=== PATIENT | male | born 1980 | race Caucasian/White ===

== ENCOUNTER 2016-08-16 20:21 | Emergency (ER) | payer SELFPAY ==
--- NOTE | 2016-08-28 21:14 | ER ---
ADMIT: 08/16/2016 RM/LOC: ER [facility] MR#: [id number] [address] [address] SRINI BIRMINGHAM [address] [place] [address] Emergency Room Report SEX: M AGE: 36 : 1980 DATE: 08/16/2016 ADDENDUM: CHIEF COMPLAINT: Seizure. HISTORY OF PRESENT ILLNESS: This is a 36-year-old, who is at [facility] detoxing from one night of doing methamphetamine, cocaine, and marijuana. This was all done on Saturday after he was discharged from detention. Right after that, he went to [facility] for detox. There is no alcohol that has been used recently. Tonight, he had 1 seizure, he is on Keppra 500 mg b.i.d. I gave him a loading dose IV a 1000 mg here, having him return to [facility], continue the Keppra 500 mg b.i.d., follow up with the neurologist if he has another seizure. CLINICAL IMPRESSION: Seizure with history of epilepsy. BRENNA Lo / Cayetano Cortez MD / dinol JOB #: [id number] CC: Cayetano Cortez MD, Attending Physician Ryan Bunn MD, Family Physician
== END 2016-08-16 22:30 | disposition other institution (70) ==
LOC: ER 20:21
DX: G40.909 Epilepsy, unspecified, not intractable, without status epilepticus (principal)

== ENCOUNTER 2016-08-27 09:14 | Inpatient (IN) | payer OTHER ==
[~2016-08-27] VITALS: Ht 175.3 cm; Wt 90.2 kg
--- NOTE | ~2016-08-27 | CLPRLASSUM ---
"PATIENT: SRINI BIRMINGHAM | | [facility] UNIT #: [id number] | [address] AGE/SEX: 36 M : 82 | [address] | [place] [address] ADMIT/REG DATE: 08/27/16 | ROOM: [facility] LOC: ADTC | ADTC | Client Problem List/Assessment Summary "
--- NOTE | ~2016-08-27 | INDIVTXPLN ---
"PATIENT: SRINI BIRMINGHAM | | [facility] UNIT #: [id number] | [address] AGE/SEX: 36 M : 82 | [address] | [place] [address] ADMIT/REG DATE: 08/27/16 | ROOM: [facility] LOC: ADTC | ADTC | Individualized Treatment Plan "
--- NOTE | ~2016-08-27 | CLPRLASSUM ---
PATIENT: SRINI BIRMINGHAM | | [facility] UNIT #: [id number] | [address] AGE/SEX: 36 M : 82 | [address] | [place] [address] ADMIT/REG DATE: 08/27/16 | ROOM: [facility] LOC: ADTC | ADTC | Client Problem List/Assessment Summary Date: 09/03/16 Problems identified by the client: Client stated he got out of long term, relapsed and came to treatment, so he doesn't get himself into more trouble. Problems identified by significant others: I have not contacted client's , as they are not together. Client's Strengths: Client identified his strengths as: His and family. Problem List: Code: T Client continues to use alcohol &/or drugs despite ongoing negative consequences. Code: T Client does not "reach-out to others for help" and instead resumes using alcohol &/or drugs. Code: T Client has learned to deny or stuff feelings; needs to learn to identify and process feelings with safe people to acquire the necessary skills to maintain half-way sobriety. Code: T Client needs to identify relapse warning signs and develop a plan to deal with them as they arise. Code Guerrero: T: to be addressed during course of treatment O: problem noted, expected to resolve itself with abstinence--specific tx plan not required R: problem noted, will be referred upon discharge PRIMARY COUNSELOR: JENNIFER Davalos
--- NOTE | ~2016-08-27 | INDIVTXPLN ---
"PATIENT: SRINI BIRMINGHAM | | [facility] UNIT #: [id number] | [address] AGE/SEX: 36 M : 82 | [address] | [place] [address] ADMIT/REG DATE: 08/27/16 | ROOM: [facility] LOC: ADTC | ADTC | Individualized Treatment Plan Date: 09/18/16 Problem Statement/Issue Identified: Client needs to identify relapse warning signs and develop a plan to deal with them as they arise. Goal: Client will learn how to maintain his recovery. Objectives/Activities to achieve goal: 1. Client is to complete the Recovery Maintenance packet and process it with counselor. Due Date:09/21/16 Complete: Incomplete: Client signature Date Counselor signature Date Outcome/Measurement of Progress Towards Goal: Counselor's signature Date "
--- NOTE | ~2016-08-27 | TXPLANREV ---
"PATIENT: SRINI BIRMINGHAM | | [facility] UNIT #: [id number] | [address] AGE/SEX: 36 M : 82 | [address] | [place] [address] ADMIT/REG DATE: 08/27/16 | ROOM: [facility] LOC: ADTC | ADTC | Treatment Plan/Staffing Review Date: 09/17/16 Treatment plan was reviewed and determined appropriate as written: Yes Treatment plan was reviewed and the following changes/addition/deletions are necessary: Client is to continue working on his assignments. He will be given a Relapse Prevention packet to work on. Discharge plans were reviewed and determined appropriate as previously documented: No Discharge plans were reviewed and determined to be as follows: Client will benefit from going to sober living, however, he will more than likely be going home while he waits to get into one. He will also be recommended to do aftercare, attend 3-5 AA/NA meetings, as well as to get and call a sponsor on a regular basis. Other pertinent issues discussed during this staffing review include: None at this time. Staff Present: Mervat Krishna PRIMARY COUNSELOR: JENNIFER Davalos Client Signature Counselor Signature Date Time "
--- NOTE | ~2016-08-27 | INDIVTXPLN ---
"PATIENT: SRINI BIRMINGHAM | | [facility] UNIT #: [id number] | [address] AGE/SEX: 36 M : 82 | [address] | [place] [address] ADMIT/REG DATE: 08/27/16 | ROOM: [facility] LOC: ADTC | ADTC | Individualized Treatment Plan Date: 09/11/16 Problem Statement/Issue Identified: Client needs to address criminal attitudes and beliefs which leads to substance abuse and crimes. Goal: Client will take a look at his criminal thinking and make positive changes in his life. Objectives/Activities to achieve goal: 1. Client is to complete the Con Game packet and process it with counselor. Due Date:09/18/16 Complete: Incomplete: 2. Client is to complete the My Change Plan packet and process it with counselor. Due Date:09/18/16 Complete: Incomplete: Client signature Date Counselor signature Date Outcome/Measurement of Progress Towards Goal: Counselor's signature Date "
--- NOTE | ~2016-08-27 | TXPLANREV ---
"PATIENT: SRINI BIRMINGHAM | | [facility] UNIT #: [id number] | [address] AGE/SEX: 36 M : 82 | [address] | [place] [address] ADMIT/REG DATE: 08/27/16 | ROOM: [facility] LOC: ADTC | ADTC | Treatment Plan/Staffing Review Date: 09/10/16 Treatment plan was reviewed and determined appropriate as written: Yes Treatment plan was reviewed and the following changes/addition/deletions are necessary: Client is to continue working on treatment plan assignments. He is finishing up with Step 1, and will begin working on relapse prevention. Discharge plans were reviewed and determined appropriate as previously documented: No Discharge plans were reviewed and determined to be as follows: Client's weapons officer is requesting he go to the [facility] in [place], but client wants to return to his brothers house. 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 Other pertinent issues discussed during this staffing review include: None at this time. Staff Present: Mervat Krishna PRIMARY COUNSELOR: JENNIFER Davalos Client Signature Counselor Signature Date Time "
--- NOTE | ~2016-08-27 | RESCARESUM ---
"PATIENT: PENG BIRMINGHAM | | [facility] UNIT #: [id number] | [address] AGE/SEX: 36 M : 82 | [address] | [place] [address] ADMIT/REG DATE: 08/27/16 | ROOM: [facility] LOC: ADTC | ADT | Summary of Residential Care Primary Counselor: Mai RODRIGUEZ Date of Admission: 08/27/16 Date of Discharge: 09/24/16 Referral Source: Right Of [address] Cutter, [place] Primary Care Provider Prior to Admission: Self Admitting Diagnosis: F15.20 Stimulant Use Disorder, Severe; F14.20 Cocaine Use Disorder, Severe; F12.20 Marijuana Use Disorder, Severe; Chronic Schizophrenia; History of drug-induced psychosis; Tobacco Use Disorder; Status Post hemorrhagic cerebrovascular accident; Seizure disorder; 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 ALL PER [facility] Discharge Diagnosis: Same Goals Achieved: Client was able to identify negative consequences, and gain insight to the disease concept, by completing various packets and paperwork. He did struggle with understanding most of it, but he was not afraid to reach out for help to his peers, who assisted him in understanding things. 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 He worked on relapse prevention, feelings and criminal thinking, as well. Continued Obstacles to Sobriety/Relapse Issues: Not getting involved in a strong recovery program, not coming to aftercare, not going to AA/NA meetings, not getting a sponsor, not finding a job, not learning how to work a strong program of recovery. Family Issues Addressed: The only issues addressed were those at home, when he was younger. He worked thru some of the feelings, but primary stated what his childhood was like and how he got away from the pain and chaos. Y Individual Therapy Y Group Therapy Y Educational Series on Substance Abuse N Parents/Significant Others Attended Family Program N Acute Medical Problems During the Course of Treatment N Transferred to Hospital During the Course of Treatment Y Accepting of Substance Abuse Problem N Non-accepting of Substance Abuse Problem N Required Psychological or Psychiatric Consultation During the Course of Treatment Completed AA Step # 1 During This Level of Care Significant Incidences During Treatment: None Reason For Discharge: PATIENT: PENG BIRMINGHAM | | [facility] UNIT #: [id number] | [address] AGE/SEX: 36 M : 82 | [address] | [place] [address] ADMIT/REG DATE: 08/27/16 | ROOM: [facility] LOC: ADTC | [facility] | Summary of Residential Care Y Completed Residential TX Goals and Ready For Next Level of Care N Left Tx Against Medical Advice/Treatment Goals Not Complete N Completed Residential Tx Goals But Refusing Continuing Care Recommendations N Discharged Due to Noncompliance/Treatment Goals not Completed N Discharged Earlier Than Planned Due to: Continuing Care Plan/Recommendations: N Intensive Partial Care N Sponsor N Partial Care Y AA Meetings/NA Meetings Y Outpatient N Co-dependency Services N Therapeutic Community N [address] N Mental Health Therapy N Marriage Counseling N Other Specific Continuing Care Plan: It is recommended that Peng go directly to the [facility], attend aftercare here, get and call a sponsor on a regular basis, attend 3-5 AA/NA meetings per week, 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 PRIMARY COUNSELOR: KAMERNO Davalos"
--- NOTE | ~2016-08-27 | INDIVTXPLN ---
"PATIENT: SRINI BIRMINGHAM | | [facility] UNIT #: [id number] | [address] AGE/SEX: 36 M : 82 | [address] | [place] [address] ADMIT/REG DATE: 08/27/16 | ROOM: [facility] LOC: ADTC | ADTC | Individualized Treatment Plan Date: 09/03/16 Problem Statement/Issue Identified: Client continues to use alcohol &/or drugs despite ongoing negative consequences, and he did not know anyone to reach out to, so continued to drink/use. Goal: Client will learn how to identify negative consequences of his addiction, attend AA/NA meetings, and meet men in recovery. Objectives/Activities to achieve goal: 1. Client is to complete the How to Get Started packet, process it with counselor and selected pages in group. Due Date:09/08/16 Complete: Incomplete: 2. Client is to complete Step 1, process it with counselor and selected pages in group. Due Date:09/13/16 Complete: Incomplete: 3. Client is to attend AA/NA meetings, ask for and get at least 5 names and numbers of men in recovery and share that list with counselor. Due Date:09/23/16 Complete: Incomplete: Client signature Date Counselor signature Date Outcome/Measurement of Progress Towards Goal: Counselor's signature Date "
--- NOTE | 2016-08-27 11:14 | NUR ---
ADMISSION NOTE Rights/Responsibilities: Copy given and explained to client. Signed and accepted by client. Client oriented to physical lay out of the ADTC unit, given Big Book and admission packet. A Francisco was assigned. Ty Clients is a 36yr old male. Brought to tx by [facility] staff where he has been for the past 14 days. Lives in [place], [place]. DOC, meth, last useds 08/12/16, Gram daily. No allergies. Meds: Olanzapine 5mg, Sertraline 100mg, Levetiracota 500mg. Was searched no contraband found. No family participation. Initial paperwork given and guidelines gone over. Doctor has been notified.
--- NOTE | 2016-08-27 16:00 | NUR ---
Recovery 101 1 hr/ Clients all shared their experiences that have helped them the most for their recovery past and present. This client shared I'm sick and tired of being tired... he is done with that addiction life.
--- NOTE | 2016-08-27 20:30 | NUR ---
Education 1HR: Clt attended lecture given by counselor on Forgiveness.
--- NOTE | 2016-08-27 23:01 | NUR ---
Tech note : Client participated in rec by making a God box. Client attended an onsite NA meeting. He was checked into his room, gave his first intro and seen by the
--- NOTE | 2016-08-28 04:10 | NUR ---
Bed Note: Clt lay motionless in bed with eyes closed showing no distress at all bed checks.
--- NOTE | 2016-08-28 12:00 | NUR ---
INITIAL SESSION 1 HR: Clt was oriented to tx plans, schedules and what to expect. He advised he just got our of intermediate, and is on probation right now. He has paranoid schizophrenia and seizure disorder and has seizures about every 2 weeks, and had one at detox. He is on meds for all this. He is to begin working on initial paperwork.
--- NOTE | 2016-08-28 15:15 | NUR ---
Tech Note: Client participated in light stretching for morning exercise and went on an outdoor walk in the afternoon. Client stated that he is working on, "How to Get Started in Treatment." Client stated that he has a previous acquaintance with a male peer.
--- NOTE | 2016-08-28 15:33 | NUR ---
Education 0.5 hour: Client attended a session on sexual health topics.
--- NOTE | 2016-08-28 16:17 | NUR ---
Relapse Prevention, 06/14, 1.0 hours, Client attended and actively participated in relapse prevention education which focused on early warnning signs of relapse.
--- NOTE | 2016-08-28 23:07 | NUR ---
Tech note : client participated in rec by decorating for Valentínjovany. Client went to the alumni meeting and attended an onsite AA meeting.
--- NOTE | 2016-08-29 05:16 | NUR ---
Bed note : Client was motionless with eyes closed at all bed checks.
--- NOTE | 2016-08-29 10:10 | NUR ---
Tech Notes: Client is working on Step 1
--- NOTE | 2016-08-29 12:12 | NUR ---
PEER REVIEW 22:1/1.5 HR: Client and peers participated in peer review. Client did well in expressing & providing appropriate feedback.
--- NOTE | 2016-08-29 12:49 | NUR ---
Education note: Client attended education by [facility]
--- NOTE | 2016-08-29 14:46 | NUR ---
FAMILY CONTACT; At this point, clt has noone to call as far as family is concerned, as he and his are not together and she lives out of state. We will process and make the decision as to when/if we should call her.
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
--- NOTE | 2016-08-29 17:21 | NUR ---
SPIRITUaL EDUCATION 1 HR. Today we oriented newcomers and the activity was reading and putting on presentations on portions of TOWARDS SPIRITUALITY.
--- NOTE | 2016-08-29 18:22 | NUR ---
med note: client complained of headache. pain level 5. motrin given
--- NOTE | 2016-08-29 22:25 | NUR ---
Tech note : Client went for a walk and worked on some crafts. Client celebrated a tech's birthday and attended an onsite NA meeting.
--- NOTE | 2016-08-29 22:41 | NUR ---
SPIRITUaL EDUCATION 1 HR. Today we oriented newcomers and the activity was reading and putting on presentations on portions of TOWARDS SPIRITUALITY.
--- NOTE | 2016-08-30 04:56 | NUR ---
Bed note: Client was moitionless with eyes closed at all bed checks.
--- NOTE | 2016-08-30 12:11 | NUR ---
Group 1.5 Hr Rtio 2:20/Topics today were orientating a new client to group rules and goals. Relapse prevention was also a topic. Client shared a group rule but that was all and ws quiet the rest of group.
--- NOTE | 2016-08-30 15:08 | NUR ---
Tech Note: Client attended Spiritual Enrichment in the morning and went for an outdoor walk in the afternoon. Client stated that he is working on Step One.
--- NOTE | 2016-08-30 15:50 | NUR ---
Education 1 Hour: Client heard from a recovery speaker who shared his experience, strength and hope.
--- NOTE | 2016-08-30 16:34 | NUR ---
Step education/ Focus was on step 10 "continued to take personal inventory and when we were wrong promply admitted it." Gave them a set of questions to answer on paper and then as a group answered the first 3 and the rest each person shared what they had written. One of the questions was when was the last time I caught myself doing or saying something I did not feel good about? This client participated.
--- NOTE | 2016-08-30 18:34 | NUR ---
Education: 1 Hour. Clients watched Picking up the Pieces for education.
--- NOTE | 2016-08-30 23:23 | NUR ---
tech note: client went on walk for recreation,participated in Guided Meditation & attended onsite AA meeting. SE:
--- NOTE | 2016-08-30 23:51 | NUR ---
tech note: client went on walk for recreation,participated in Guided Meditation & attended onsite AA meeting. SE: being here.
--- NOTE | 2016-08-31 04:07 | NUR ---
Bed note: Client was moitionless with eyes closed at all bed checks.
--- NOTE | 2016-08-31 11:30 | NUR ---
GROUP 1.5 HRS. 1:10 Group discussion included cravings and reservations as well as consequences of use. Peers processed from the HOW TO GET STARTED IN TREATMENT assignment. This client related to the thought of "just one more time" and shared that it never worked the way he had it planned.
--- NOTE | 2016-08-31 13:00 | NUR ---
PEER REVIEWS 1 HR: Clt participated in peer review process and was able to give open and honest feedback to those receiving a review.
--- NOTE | 2016-08-31 13:31 | NUR ---
Tech Note: Client went on group walk for recreation. Clt is working on Step 1.
--- NOTE | 2016-08-31 23:02 | NUR ---
TECH NOTE: Client participated in reading guidelines, watched tv/movies. attended optional off site AA meeting SE: peer review
--- NOTE | 2016-09-01 04:47 | NUR ---
BED NOTE: Client was in bed, motionless with eyes closed all three bed checks.
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
--- NOTE | 2016-09-01 16:31 | NUR ---
Tech Note: Client is working on Step 1 and had a visitor.
--- NOTE | 2016-09-01 23:37 | NUR ---
TECH NOTE: Client played Catch Phrase for REC, attended off site AA meeting, and watched TV/movies. SE:supper
--- NOTE | 2016-09-02 04:20 | NUR ---
Bed Note: Clt lay motionless in bed with eyes closed showing no distress at all bed checks.
--- NOTE | 2016-09-02 16:15 | NUR ---
Tech Note: Client participated in Big Book Study and stated that he is working on Step One.
--- NOTE | 2016-09-02 22:43 | NUR ---
Client attended the A.A.Panel and participated in Community Clean. Client also attended PRECISION LENS GENERATOR meeting SE:PRECISION LENS GENERATOR meeting
--- NOTE | 2016-09-03 04:03 | NUR ---
BED NOTE: Client was in bed, and motionless at all three bed checks.
--- NOTE | 2016-09-03 10:05 | NUR ---
Tech notes: Client is working on Step 1
--- NOTE | 2016-09-03 11:30 | NUR ---
AM GROUP 1.5 HR/ 21:2 Clients all read The Wall an Allegory and discussed how it related to the 12 steps/recovery. Each client robert and shared their wall.
--- NOTE | 2016-09-03 14:01 | NUR ---
Educational note: Client attended speaker for educationFred
--- NOTE | 2016-09-03 16:00 | NUR ---
RECOVERY 101 1 HR/ Clients all filled out consequences list to look at each chemical they have ever used and how many consequences were experiences with each drug. Many shared what they learned from this and their top 3 consequences, they also discussed early stage symptoms of their addiction. Counselor asked the group what would be a definition that includes all stages and this was discussed as well at stages of Denial, Anger, Compliance/defiance, admittance, acceptance and Surrender.
--- NOTE | 2016-09-03 20:39 | NUR ---
Education: 1 Hour. Client attended lecture on "Adult Children of Alcoholics" presented by staff.
--- NOTE | 2016-09-03 23:08 | NUR ---
Tech Note: Client played a game for rec and attended the on unit N.A.Meeting. SE:_Speaker at 1300.
--- NOTE | 2016-09-04 04:18 | NUR ---
Bed Note: Client was in bed, and motionless at all three bed checks.
--- NOTE | 2016-09-04 13:14 | NUR ---
Tech Note: Nutritional Services presented information for the 1:00 speaker meeting. Client is working on Step 1.
--- NOTE | 2016-09-04 15:19 | NUR ---
A.M. 1.5 hr res group/ratio 1:10/ Group heard a getting started, a feelings letter, vent letter and a womens journal assignment. This client was attentive.
--- NOTE | 2016-09-04 16:14 | NUR ---
Relapse Prevention, 06/15, 1.0 hours, Client attended and actively participated in relapse prevention education which focused on top 5 relapse triggers and how to avoid them.
--- NOTE | 2016-09-04 17:36 | NUR ---
Education Note: Topic was "[place] From Shame" presented by Keesha.
--- NOTE | 2016-09-04 22:51 | NUR ---
TECH NOTE: Client did crafts/beads for REC and attended on site AA meeting. SE: all day
--- NOTE | 2016-09-05 04:01 | NUR ---
BED NOTE: Client was in bed, motionless with eyes closed all bed checks.
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
--- NOTE | 2016-09-05 10:44 | NUR ---
Gabriel notes: Client is working on BB and mtg with jesse
--- NOTE | 2016-09-05 11:30 | NUR ---
GROUP 1.5 HRS. 1:9 Group discussion included step 1 assignments of identifying 15 examples of how betrayed values (pg. 10) and 10 specific examples of effects on others (pg. 11). This client was mostly quiet but appeared attentive.
--- NOTE | 2016-09-05 16:00 | NUR ---
Education 1 Hour: Client watched the video, "Marijuana" by Gopi Pollard.
--- NOTE | 2016-09-05 19:06 | NUR ---
Education 1HR: Clt attended lecture given by counselor on boundaries.
--- NOTE | 2016-09-05 22:24 | NUR ---
Tech note : Client went for a long walk for rec and attended an onsite NA meeting. SE: NA meeting
--- NOTE | 2016-09-06 04:05 | NUR ---
Bed note: Client was in bed motionless, with eyes closed at all bed checks.
--- NOTE | 2016-09-06 12:55 | NUR ---
Group 1.5 Hr Ratio 1:10/Topics today were orientating a new member to group rules and goals. A step onw was shared and issues growing up were discussed. Client shared a group rule but other de la rosa was quiet and appeared to be paying attention.
--- NOTE | 2016-09-06 15:29 | NUR ---
Tech Note: Client participated in Spiritual Enrichment in the morning and went for an outdoor walk in the afternoon. Client stated that he is working on Step One.
--- NOTE | 2016-09-06 15:41 | NUR ---
Education 1 Hour: Client watched the video, "Doing a 4th and 5th Step" by Delia Alfonso.
--- NOTE | 2016-09-06 15:58 | NUR ---
Step education/1 hr/ Focus was on step 11 Sought through prayer and meditation to improve conscious contact with God,praying for his will for us and the power to carry that out. Each person completed a set of questions then we discussed. This person participated.
--- NOTE | 2016-09-06 19:12 | NUR ---
Education 1HR: Clt watched half of video "Pleasures Unwoven" with staff present.
--- NOTE | 2016-09-06 23:07 | NUR ---
Tech note: Clt played a game for rec, attended GM and onsite AA mtg. SE was all day
--- NOTE | 2016-09-07 04:25 | NUR ---
Bed Note: Clt lay motionless in bed with eyes closed showing no distress at all bed checks.
--- NOTE | 2016-09-07 13:00 | NUR ---
PEER REVIEWS 1 HR: Clt participated in peer reviews and took a risk to give open and honest feedback to those receiving a review.
--- NOTE | 2016-09-07 13:04 | NUR ---
Tech Note: Client is working on Step 1.
--- NOTE | 2016-09-07 13:17 | NUR ---
Morning Group, /12 ratio, 1.5 hours, Client attended and actively participated in group. Client offered feedback to peers.
--- NOTE | 2016-09-07 13:58 | HP ---
ADMIT: 08/27/2016 RM/LOC: [facility] MR#: [id number] [facility]#: [id number] [address] [id number] [place] [address] [place] [address] History and Physical SEX: M AGE: 36 : 1980 DATE OF SERVICE: CHIEF COMPLAINT: Drug problem with recent relapse. CLINICAL HISTORY: The patient is a 36-year-old male, admitted to the residential care program with [facility] for treatment of his stimulant use disorder, severe; and cannabis use disorder, severe. The patient notes that he was recently incarcerated in shelter for 1 year. This was his fifth time in shelter and was in shelter for flight to avoid arrest. He was released from shelter on probation on 08/08/2016. He notes that he relapsed on 08/09/2016 on methamphetamine, cocaine, and marijuana. He then had a positive UA, testing positive for both pot, cocaine, and methamphetamine. Subsequently, his articulation officer encouraged him to seek treatment or have his probation revoked. The patient notes that he relapsed on 08/09/2016 and went on a five- day binge using primarily methamphetamine and marijuana, but also did use cocaine. The patient notes that he prefers cocaine over methamphetamine, but notes that it is harder to get. When he relapsed, he used all three drugs heavily for 5 days. Note, the patient does have an extensive legal history and has spent over 10 years in shelter during his five periods of incarceration. His longest period of confinement was seven years after being arrested for armed robbery. He notes his only significant period of sobriety is when he is incarcerated in shelter. He notes that his current drug of choice is methamphetamine. When using meth, he typically uses a half to a gram a day. He primarily smokes it. He does prefer cocaine over meth, but as noted, cocaine is usually harder to find and much more expensive. If he can obtain cocaine, he does use it daily. He notes that he used to live in [place] and just moved to the [facility] in 2015. While living in [place], cocaine was much easier to obtain. As noted, his primary drug of choice at this time is meth due to its availability, but he also prefers cocaine. He also is a daily pot user, typically smoking at least a gram of pot per day. The patient notes that he ultimately drinks occasionally, does not really care that much for alcohol. His drugs of choice are meth, cocaine, and marijuana. He denies any abuse of prescription drugs. He does note that this is his second time in treatment. He did complete a treatment program while confined to shelter in 2013. Once again, as soon as he got out of shelter that time, he also relapsed. He has had no significant period of sobriety except when he is confined to shelter. He is admitted at this time for treatment of his stimulant use disorder, and cannabis use disorder. 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 At that time, he had been using methamphetamine and cocaine heavily, and was felt that his heavy drug use led to the rupture of this brain aneurysm, they had to do emergency craniotomy this was in 2004, it left him with some neurocognitive impairment due to the brain bleed, also a seizure disorder. He notes that despite being on anticonvulsants medicine, which he takes irregularly, he continues to have seizures. His last [facility] seizure was approximately 10 days ago while in detox at the [facility], but he notes prior to going to detox, he had not been taking his Keppra. Other than for the hospitalization in 2004 ADMIT: 08/27/2016 RM/LOC: [facility] MR#: [id number] [address] [address] [place] [facility] [address] History and Physical SEX: M AGE: 36 : 1980 with the cerebral aneurysm and stroke, no other recent hospitalizations. PREVIOUS OPERATIONS: The patient had emergency craniotomy in 2004 for an intracranial bleed. CURRENT MEDICATIONS: Include. 1. Keppra 500 mg twice daily. 2. Zoloft 100 mg daily. 3. Zyprexa 15 mg daily. ALLERGIES: NONE KNOWN. MEDICAL ILLNESSES: The patient has history of seizure disorder related to his previous intracranial bleed. He also has a history of chronic schizophrenia and/or drug-induced psychotic disorder. He denies any other chronic health problems. Do note that he is a smoker. Notes that while he was in shelter he was not able to smoke, he resumed smoking as soon as he got out of shelter as well. SOCIAL HISTORY: The patient notes he is . His is currently living with her family in [place], [place]. He notes he has one child with his and he has two step children. When he moved to [place] in 2015, he was living here with his brother. He notes that he dropped out of high school in the 9th grade. He has never completed his GED. He has been unemployed for over the past year since he has been in shelter. Prior to going to shelter, he was working at [employer]. He currently is still unemployed. FAMILY HISTORY: There is noted to be a very strong family history of substance abuse and chemical dependency. The patient notes that his father is an alcoholic. His parents when he was age 26. He notes he has one brother and three sisters. No other significant family history reported. REVIEW OF SYSTEMS: CONSTITUTIONAL: No fever, no chills. Appetite is reportedly good. Weight is stable. ENT: No complaints. PULMONARY: No shortness of breath. No cough. CARDIAC: No chest pain. GASTROINTESTINAL: No nausea, vomiting, or diarrhea. GENITOURINARY: No voiding symptoms. MUSCULOSKELETAL: No complaints other than residual paresthesia and diminished sensation on the right side of his body due to his previous cerebrovascular accident. NEUROLOGIC: Seizure disorder related to his previous hemorrhagic stroke. No new focal neurologic symptoms. Does continue to have intermittent seizures. INTEGUMENT: No rashes or worrisome skin lesions. PHYSICAL EXAMINATION: VITAL SIGNS: Height 5 feet 9 inches. Weight is 198 pounds. Temp 96.5, pulse 93, respirations 20, blood pressure 129/74. ADMIT: 08/27/2016 RM/LOC: [facility] MR#: [id number] [address] [address] [place] [address] [place] [address] History and Physical SEX: M AGE: 36 : 1980 GENERAL: The patient is a 36-year-old male, who appears his stated age. He is in no acute distress. He is oriented x3 ENT: Today is unremarkable. Do note on exam of his scalp, a surgical incisional scar across the mid portion of his scalp from previous craniotomy. NECK: Supple. Thyroid not enlarged. No cervical adenopathy. LUNGS: Today are clear. HEART: Regular rhythm without murmur. ABDOMEN: Soft, nontender. No masses or organomegaly. GENITALIA: Normal male. EXTREMITIES: Normal to gross exam. No clubbing or cyanosis. No peripheral edema. NEUROLOGICAL: He has some diminished sensation to light touch and some weakness in his left upper extremity, primarily his right hand with some mild dysfunction of the right hand with diminished right hand grasps. He also has diminished sensation in his right foot and mild weakness of the right leg compared to the left. No focal deficits from his previous CVA. ASSESSMENT: At the time of admission: 1. Stimulant/cocaine/methamphetamine use disorder, severe. 2. Cannabis use disorder, severe. 3. Chronic schizophrenia. 4. History of drug-induced psychosis. 5. Tobacco use disorder. 6. Status post hemorrhagic cerebrovascular accident. 7. Seizure disorder. 8. 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 PLAN: Admit the patient to the residential care program with a tentative discharge date of 09/24/2016 upon completion of treatment, and would be essential that the patient go to a correction house. He is going to need the structure and support of a sober living community to maintain long-term sobriety. We will continue his current Keppra dose and check Keppra level, and monitor for signs of seizure activity in hopes of minimizing risk of another seizure while here at the treatment program. Shilo Sheehan MD/ dee JOB #: [id number] CC: Shilo Sheehan, Attending Physician FAMILY PHYSICIAN, Family Physician
--- NOTE | 2016-09-07 15:34 | NUR ---
Education Note: Client watched 2nd half of Pleasure Unwoven.
--- NOTE | 2016-09-07 22:27 | NUR ---
Tech note : Client watched movies, played games with peers and walked to an offsite AA meeting.
--- NOTE | 2016-09-08 04:08 | NUR ---
Bed note: Client was in bed with eyes closed and no distress at all bed checks.
--- NOTE | 2016-09-08 12:28 | NUR ---
IS 1 HR: Processed clt's Step 1, of which he is struggling w/ getting it done. He heard to keep it simple and finish pages 10-11. He hasn't started on them, but did do the other pages. He asked whether he will have to stay the entire time of his tx, as he just got [facility]. He heard it will be staffed, it depends on where he's going and what his aftercare plan is.
--- NOTE | 2016-09-08 16:29 | NUR ---
Tech Note: Client attended N.A.Panel and is working on Step 1. Client had a visitor as well today.
--- NOTE | 2016-09-08 19:10 | NUR ---
med note: client complained of head ache pain level3. motrin given
--- NOTE | 2016-09-08 22:17 | NUR ---
Tech note : Client worked on [employer], [employer] or watched sports for rec this evening. Client walked to an offsite AA meeting.
--- NOTE | 2016-09-09 04:06 | NUR ---
Bed note: Client was in bed with eyes closed with no distress at all bed checks
--- NOTE | 2016-09-09 16:43 | NUR ---
Tech Note: Client received a visitors in the afternoon. Client stated that he is working on Step One.
--- NOTE | 2016-09-09 22:45 | NUR ---
tech note: Client attended onsite AA Panel & SHRIMP PEELING MACHINE OPERATOR meeting.Client participated in Community Clean & talked on the phone & watched movies. SE: all day.
--- NOTE | 2016-09-10 04:30 | NUR ---
tech note: client was motionless in no distress at all bed checks.
--- NOTE | 2016-09-10 10:18 | NUR ---
Tech Notes: Client is working on Step 1
--- NOTE | 2016-09-10 11:03 | NUR ---
Education Note: Client watched video for education today.
--- NOTE | 2016-09-10 11:30 | NUR ---
GROUP 1.5 HR/ 11:1 Clients heard peer share GS packet and this client was attentive and quiet.
--- NOTE | 2016-09-10 16:00 | NUR ---
RECOVERY 101 1 HR/ All clients participated in discussing what are the fundamentals of what they learn at AA/NA meetings that will help them succeed in recovery such as meetings, sponsor, home group, working steps, service work, attending functions, slogans/acronyms as tools, etc. This client was attentive.
--- NOTE | 2016-09-10 19:15 | NUR ---
Education: 1 Hour. Client attended "Communications" lecture presented by staff.
--- NOTE | 2016-09-10 23:33 | NUR ---
Client attended N.A.Meeting and went on a walk for rec. SE: N.A.Meeting
--- NOTE | 2016-09-11 04:21 | NUR ---
Bed note: Client was in bed with eyes closed with no distress at all bed checks
--- NOTE | 2016-09-11 11:30 | NUR ---
GROUP 1.5 HRS. 1:9 Group discussion included issues of discharge planning and fear of leaving. This client sat quiet except to share rule while orienting new peer. He was confronted on being quiet at the end of group and peers stated he has been encouraged to share more. Suggested to client that he start group tomorrow A.M.
--- NOTE | 2016-09-11 14:00 | NUR ---
CASE MAN: A call was placed to [facility]'s PO, who stated he spoke to [facility] about going to the [facility] in [place]. AFter calls, it was discovered he is not on disability, so does not qualify.
--- NOTE | 2016-09-11 15:42 | NUR ---
Tech Note: Client participated in light stretching for monring exercise and went for an outdoor walk in the afternoon. Client stated that he is working on Step One.
--- NOTE | 2016-09-11 17:12 | NUR ---
Relapse Prevention, 06/15, 1.0 hours, Client attended and actively participated in relapse prevention education which focused on high risk situations.
--- NOTE | 2016-09-11 19:22 | NUR ---
Education note: 1 hour watched video "enabler".
--- NOTE | 2016-09-11 19:33 | NUR ---
education note: 1 hour lecture by [facility] on hiv/aid/std. plus clients wwere tested for HIV.
--- NOTE | 2016-09-11 22:09 | NUR ---
Tech note: Client went for a long walk for rec, participated in guided meditation and attended an onsite AA meeting.
--- NOTE | 2016-09-12 05:30 | NUR ---
Bed note : Client was in bed with eyes closed and no movement at all bed checks.
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
--- NOTE | 2016-09-12 13:42 | NUR ---
Tech Note: Outside speaker Tawanda Montiel spoke at 1300. Client attended and is working on
--- NOTE | 2016-09-12 17:23 | NUR ---
SPIRITUAL EDUCATION 1 HR. Topics today were clarifying the differences between spirituality and sikh, and playing the spiritual challenge game where they are asked thought provoking open ended questions. It is meant to inspire spiritual line of thought.
--- NOTE | 2016-09-12 22:42 | NUR ---
Tech Note : Client participated in rec by playing catch phrase and attended an onsite NA meeting. His family brought everyone in soda.
--- NOTE | 2016-09-12 23:40 | NUR ---
Education: 1 Hour. Client attended "Disease Concept" presented by counselor.
--- NOTE | 2016-09-13 05:37 | NUR ---
Bed Note: Client was motionless with eyes closed at all bed checks.
--- NOTE | 2016-09-13 10:48 | NUR ---
Tech Note: Client participated in light stretching for morning exercise. Client stated that he is working on, "[employer] Water Game."
--- NOTE | 2016-09-13 13:39 | NUR ---
PEER REVIEWS 1 HR: Clt participated in peer reviews and took a risk to give open and honest feedback to those receiving a review. The last half hour of group clients talked about loved ones and dying.
--- NOTE | 2016-09-13 15:48 | NUR ---
Education 1 Hour: Client heard from a member of the recovery community who shared his experience, strength and hope.
--- NOTE | 2016-09-13 16:13 | NUR ---
Step Education 1 hr/ Focus was on step 12 "having had a spiritual awakening", each person completed a set of questions on paper and then we discussed. This client participated. He said he had a hard time understanding questions and the spiritual awakening so we spent time on this.
--- NOTE | 2016-09-13 19:42 | NUR ---
Tech note: client was off the unit for [employer] banquet and speaker event
--- NOTE | 2016-09-14 11:44 | NUR ---
Group 1.5 Hr Ratio 1:10/Topics today were orientating a new member to group rules and goals, a GS packet and a getting started packet. Client shared a group rule and what he is grateful for but was quiet most of group.
--- NOTE | 2016-09-14 13:54 | NUR ---
Tech Note: Client with with group on an outdoor walk. Client is working on Con Game.
--- NOTE | 2016-09-14 16:01 | NUR ---
Education Note: Client watched "How to Sabotage Your Treatment"
--- NOTE | 2016-09-14 16:34 | NUR ---
PEER REVIEWS 1.0 HR: Clt participated in peer reviews and took a risk to give open and honest feedback to those receiving a review.
--- NOTE | 2016-09-14 22:58 | NUR ---
TECH NOTE: Client participated in reading [employer], watched tv/movies. SE: all day
--- NOTE | 2016-09-15 04:05 | NUR ---
Bed Note: Clt lay motionless in bed with eyes closed showing no distress at all bed checks.
--- NOTE | 2016-09-15 14:55 | NUR ---
IS 1 HR: Clt reported he hasn't started on the Con Game. He stated he read parts of it, but isn't sure he understands, so we did discuss his criminal thinking was playing a con game. He stated he would ask for help. He has started the Change Plan, as he understands it more. Clt signed a release to the , so a referral sheet will be sent to them.
--- NOTE | 2016-09-15 15:16 | NUR ---
Tech Note: Client had an appt with his counselor and is working on [employer] Game. He had a visitor.
--- NOTE | 2016-09-15 22:56 | NUR ---
TECH NOTE: Client played a game for REC, attended off site AA meeting, watched TV/movies SE: all day
--- NOTE | 2016-09-16 04:48 | NUR ---
Bed Note: Clt lay motionless in bed with eyes closed showing no distress at all bed checks.
--- NOTE | 2016-09-16 15:22 | NUR ---
Tech Note: Client participated in [employer] and stated that he is working on,"Con Game." Client received visitors.
--- NOTE | 2016-09-16 22:57 | NUR ---
Tech Note: Client attended A.A.Panel and participated in community clean. SE:All Day
--- NOTE | 2016-09-17 04:51 | NUR ---
Bed Note: Client was motionless with eyes closed at all bed checks.
--- NOTE | 2016-09-17 10:22 | NUR ---
Tech notes: Client is working on [employer] Software[employer]
--- NOTE | 2016-09-17 15:45 | NUR ---
Morning Group, 1.5 hours, 06/16 Clients all participated in 2 family sculptures with role-playing, feedback, and how they related.
--- NOTE | 2016-09-17 16:01 | NUR ---
RECOVERY EDUCATION 1 HR. Todays topic was on denial; good, bad, and levels, life problems being 85 percent of recovery, and distorted thinking patterns that can keep us stuck.
--- NOTE | 2016-09-17 16:30 | NUR ---
Education note: Client watched video "[address] on [address]"
--- NOTE | 2016-09-17 18:43 | NUR ---
Education: 1 Hour. Client attended "Feelings" lecture given by staff.
--- NOTE | 2016-09-17 22:09 | NUR ---
Tech note: Client participated in rec by playing [employer] outside. Client attended an onsite NA meeting.
--- NOTE | 2016-09-18 04:15 | NUR ---
BED NOTE: client was in bed, motionless with eyes closed all three bed checks.
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
--- NOTE | 2016-09-18 16:14 | NUR ---
Relapse Prevention, 06/13 ratio, 1.0 hours, Client attended and actively participated in relapse prevention education which focused on personal reactions to high risk situtations such as personal reactions vs. personal responses, addictive thinking, irresponsible thinking, addictive behavior, irresponsible behavior, instant gratification, and emotional consequences to thoughts and actions.
--- NOTE | 2016-09-18 16:34 | NUR ---
Tech Note: Client listened to speaker Evert share his experience, strength and hope. Client is working on the Con Game.
--- NOTE | 2016-09-18 19:32 | NUR ---
Education : 1 hour lecture given by counselor on feelings.
--- NOTE | 2016-09-18 22:14 | NUR ---
Tech note: Client played catchphrase for rec, participated in guided meditation and attended AA meeting. SE: all day
--- NOTE | 2016-09-19 04:23 | NUR ---
Bed note: client was in bed with eyes closed and no distress at all bed checks.
--- NOTE | 2016-09-19 10:03 | NUR ---
Tech notes: Client is working on [employer]
--- NOTE | 2016-09-19 12:14 | NUR ---
AM GROUP 10:1/1.5 HR: Client and peers participated in the ORIENTATION OF TWO NEW PEERS TO GROUP GUIDELINES, GOALS AND OBJECTIVES. All were involved as three group members processed their work from assignments. Multiple members related, several shared from their own experiences providing support and encouragement. This client sat quietly, but appeared attentive.
--- NOTE | 2016-09-19 13:29 | NUR ---
Education note: Client watched video
--- NOTE | 2016-09-19 16:27 | NUR ---
SPIRITUAL EDUCATION 1 HR. Todays topic was the ADDICTIVE SELF vs. SPIRITUAL SELF. We held discussion on who we are in our addiction vs who we are in recovery and contrasted the two.
--- NOTE | 2016-09-19 18:33 | NUR ---
Education: 1 hour lecture on self esteem given by counselor
--- NOTE | 2016-09-19 22:48 | NUR ---
Client did beads for rec and attended N.A.Meeting. SE: All Day
--- NOTE | 2016-09-20 04:00 | NUR ---
Bed note: client was in bed with eyes closed and no distress at all bed checks.
--- NOTE | 2016-09-20 11:58 | NUR ---
Group 1.5 Hr Ratio 1:10/Topics today were a Getting Started packet, a Relapse prevention and a Self worth packet. Client did not share and appeared to be bored in group as his eyes were closed the majority of the time.
--- NOTE | 2016-09-20 15:26 | NUR ---
Tech Note: Client participated in Spiritual Enrichment in the morning and went for an outdoor walk after lunch. Client stated that he is working on, "Con Game."
--- NOTE | 2016-09-20 16:16 | NUR ---
Education 1 Hour: Client heard a presentation on cross addiction.
--- NOTE | 2016-09-20 17:00 | NUR ---
FAMILY EDUCATION 3 HRS. Client attended alone and took part in the discussion on the disease concept. Client shared chemical history and the consequences.
--- NOTE | 2016-09-20 23:11 | NUR ---
TECH NOTE: Client did newcommer bookmarks for REC, participated in guided meditation, and attended AA meeting. Client had interview with [address] SE: all day
--- NOTE | 2016-09-21 01:21 | NUR ---
1 HR EDUCATION: Client watched a video "Say Yes to Life" by Father Horacio Bergman
--- NOTE | 2016-09-21 04:41 | NUR ---
Bed Note: CLt lay motionless in bed with eyes closed showing no distress at all bed checks.
--- NOTE | 2016-09-21 10:51 | NUR ---
FINAL SESSION 1 HR: Clt processed from his My Change Plan, but he doesn't appear to understand it much. He stated he is getting help from a peer, and the answers he has sound more like the peers answers. He was given a Recovery Maintenance pkt and heard to work on it at home and bring it to aftercare with Saurabh. His first appt is 10/02 @ 9:00.
--- NOTE | 2016-09-21 10:53 | NUR ---
REFERRAL: Clt has been [facility], and his [id number] will get him the deposit. He will d/c and begin looking for a job immediately. His service officer was informed of him going to the .
--- NOTE | 2016-09-21 14:55 | NUR ---
PEER REVIEWS 1.5 HRS: Clt participated in peer review process and received his own. He heard he has trust issues, is hurt, uses humor, shy, quiet, doesn't open up, flies under the radar, keeps his [place] of friends small, reserved, is going thru the motions, locked inside his emotions, needs to open up. He felt afraid, sad, glad and hurt
--- NOTE | 2016-09-21 16:23 | NUR ---
Tech Note: Clt watched "Relapse" for afternoon video. Clt is working on [employer].
--- NOTE | 2016-09-21 22:42 | NUR ---
Tech note: Client watched tv and movies.
--- NOTE | 2016-09-22 05:21 | NUR ---
Bed note : Client was in bed motionless with eyes close at all bed checks.
--- NOTE | 2016-09-22 15:36 | NUR ---
Tech Note: Client attended A.A.Meeting at [facility] and [facility] and then helped with the clubhouse cleaning, ate lunch, and listened to a speaker. Client is working on [employer]
--- NOTE | 2016-09-22 20:44 | NUR ---
tech note: Client played a game for recreation & attended offsite AA meeting.Client watched tv & talked on the phone. SE: All Day.
--- NOTE | 2016-09-23 05:22 | NUR ---
Bed note: Client was in bed motionless with eyes closed at all bed checks.
--- NOTE | 2016-09-23 16:20 | NUR ---
TECH NOTE: Client participated in Chapter 5 of Big Book study, attended study time, and watched tv/movies. Had visitors
--- NOTE | 2016-09-23 23:05 | NUR ---
tech note: client attended AA Panel & participated in Community Clean. Client talked on the phone. SE: All Day.
--- NOTE | 2016-09-24 04:39 | NUR ---
Bed Note: Clt lay motionless in bed with eyes closed showing no distress at all bed checks.
--- NOTE | 2016-09-24 07:12 | NUR ---
Client left tx with ride to the [facility] [address], all personal belongings were sent with. Discharge instuction gone over and copy given.
--- NOTE | 2016-10-29 12:53 | DS ---
ADMIT: 08/27/2016 RM/LOC: [facility] MR#: [id number] [facility]#: [id number] [id number] [place], [place] [id number] SRINI [place] [address] [place] [address] General Discharge Summary SEX: M AGE: 36 : 1980 ADMISSION DATE: 08/27/2016 DISCHARGE DATE: 09/24/2016 ADMITTING DIAGNOSIS: As per history and physical. FINAL DIAGNOSES: 1. Stimulant/cocaine/methamphetamine use disorder, severe. 2. Cannabis use disorder, severe. 3. Chronic schizophrenia. 4. Drug-induced psychosis. 5. Tobacco use disorder. 6. Status post hemorrhagic cerebrovascular accident. 7. Seizure disorder. 8. 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 COMPLICATIONS: None. OPERATIONS: None. CLINICAL HISTORY: The patient is a 36-year-old, male, admitted to the residential care program at the [facility] for treatment of his stimulant use disorder as well as his cannabis use disorder. The patient comes to treatment after being recently released from custodial. He was released from custodial on probation on 08/08/2016. As a portion of his probation agreement, he is to remain clean and sober. The patient notes that he has had dirty UAs while on probation and his probation is in jeopardy being revoked and he will return to custodial. The patient relapsed on 08/09/2016, his first day out of custodial. For details of his pattern of usage and problems associated with his substance abuse disorder as well as his ongoing chemical dependency, please see the clinical history portion of the dictated history and physical. Please also see dictated history and physical for pertinent past medical history and physical exam findings. LABORATORY AND X-RAY SUMMARY FROM THIS ADMISSION: The patient did have a Keppra level done on 08/27/2016, which was therapeutic at a level of 10. HOSPITAL COURSE: The patient was admitted to the residential care program and assigned to his primary counselor, Mai Gay. He remained in the treatment program from 08/27/2016 until 09/24/2016. While in treatment, he participated in individual therapy and group therapy. He was also given the educational series on substance abuse and worked on many of these assignments. While in treatment, he attended family education and family group sessions, but did not have any family participation. While in treatment, he was accepting of his substance abuse problem and worked well with the staff in both individual and group sessions. He was able to complete step 1 of AA during this level of care. While in treatment, he had no significant medical issues, he was able to identify the negative consequences of his addiction, gained insight into the disease concept of addiction and was able to recognize his powerlessness ADMIT: 08/27/2016 RM/LOC: [facility] MR#: [id number] [address] [address] [place] [address] [place] [address] General Discharge Summary SEX: M AGE: 36 : 1980 over drugs and alcohol. He had a very positive attitude towards treatment. He did struggle with understanding the treatment process, but was not afraid to reach out for help from his peers who assisted him in understanding things. He was elected as client coleader during his last week in treatment, which helped boost his self-worth and self-esteem. He worked on relapse prevention and was able to identify obstacles to his long-term sobriety. He ultimately completed his residential treatment goals and was felt to be ready for the next level of care. It was recommended that he go directly from treatment to the [facility], [address] [place], and reside there while he is in outpatient aftercare. He is to attend 3 to 5 AA or NA meetings per week and continue with outpatient treatment to include weekly individual and weekly group sessions. DISCHARGE MEDICATIONS: His medications at dismissal were to include; 1. Keppra 500 mg one b.i.d. 2. Zoloft 100 mg once daily. 3. Zyprexa 15 mg one at bedtime. DISCHARGE INSTRUCTIONS: He is to follow up with [facility] for his psychotropic medications. Continue to get his Keppra through [facility]. CONDITION AT DISCHARGE: Improved. PROGNOSIS: Good if he follows through on aftercare recommendations. Shilo Sheehan MD/ dee JOB #: [id number] CC: Shilo Sheehan MD, Attending Physician NO FAMILY PHYSICIAN, Family Physician
== END 2016-09-24 07:17 | disposition home or self-care (01) | DRG 895 ==
LOC: ADTC 10:08
PROVIDERS: ADMIT Family Medicine
PROC: HZ34ZZZ Individual Counseling for Substance Abuse Treatment, Interpersonal (ICD-10-PCS; principal; 2016-08-27)
PROC: HZ43ZZZ Group Counseling for Substance Abuse Treatment, 12-Step (ICD-10-PCS; principal; 2016-08-27)
DX: F14.20 Cocaine dependence, uncomplicated (principal); F15.20 Other stimulant dependence, uncomplicated; F19.259 Other psychoactive substance dependence with psychoactive substance-induced psychotic disorder, unspecified; I69.351 Hemiplegia and hemiparesis following cerebral infarction affecting right dominant side; F12.20 Cannabis dependence, uncomplicated; F20.9 Schizophrenia, unspecified; F17.210 Nicotine dependence, cigarettes, uncomplicated; G40.909 Epilepsy, unspecified, not intractable, without status epilepticus; Z65.3 Problems related to other legal circumstances; Z56.0 Unemployment, unspecified; Z81.3 Family history of other psychoactive substance abuse and dependence